=== PATIENT | female | born 1945 | race Caucasian/White ===

== ENCOUNTER 2019-06-05 15:41 | Emergency (ER) | payer MEDICARE ==
[~2019-06-05] VITALS: Ht 157.5 cm; Wt 69.0 kg
[2019-06-05] MEDS ORDERED: ACETAMINOPHEN 650MG/20.3ML UDC PO ONE (17:15)
[2019-06-05] MEDS ORDERED: TETANUS, DIPHTHERIA, PERTUSSIS VAC/PF 0.5ML (>7YR OLD) IM ONE (17:15)
[2019-06-05 19:14] VITALS: BP 153/72
== END 2019-06-05 19:19 | disposition home or self-care (01) ==
LOC: ER 15:41
DX: S01.01XA Laceration without foreign body of scalp, initial encounter (principal); E11.9 Type 2 diabetes mellitus without complications; W10.1XXA Fall (on)(from) sidewalk curb, initial encounter; Y93.01 Activity, walking, marching and hiking; Y92.89 Other specified places as the place of occurrence of the external cause; Y99.8 Other external cause status
CPT/HCPCS: 12002; 90471; 90715; 99284